=== PATIENT | female | born 1995 | race Caucasian/White ===

== ENCOUNTER 2016-09-07 17:56 | Emergency (ER) | payer BC ==
[~2016-09-07] VITALS: Ht 157.5 cm; Wt 63.1 kg
[2016-09-07 17:59] VITALS: TEMP 37; Ht 157.5 cm; Wt 63.1 kg
[2016-09-07] MEDS ORDERED: BCPILLS PO (18:18)
[2016-09-07] MEDS ORDERED: ESCI1TAB10 PO (18:18)
[2016-09-07] MEDS ORDERED: PROPARACAINE HCL 0.5% OP SOLN 15 ML BTL OP STA (18:34)
--- NOTE | 2016-09-07 19:06 | EMERGENCY ROOM VISIT NOTE ---
History First contact with patient: 18:14 Chief Complaint: EYE ASSESSMENT Stated Complaint: BLURRED VISION,EYE PRESSURE,BURNING,LIGHTSENSITIVE History of Present Illness The patient is a 21 year old female who presents to the Emergency Room with complaints of burning in bilateral eyes. The patient reports that she was seen at [facility] 4 days ago due to burning in her right eye. They prescribed her an antibiotic drop which she used for 3 days. She reports that the symptoms seemed to worsen and also spread to the left eye. She called them and they prescribed her a second eyedrop. She reports that she uses eyedrop for 2 days but her symptoms have not improved. She reports blurred visions at times and a feeling of pressure in her eyes. She does not wear contacts or glasses. She states the eyes are watering and she describes a burning pain. She reports her overall vision is not decreased. She denies any cough, earaches or sore throat. Review of Systems A complete 10-point Review of Systems was discussed with the patient, with pertinent positives and negatives listed in the History of Present Illness. All remaining Review of Systems questions can be considered negative unless otherwise specified. Social History Smoking Status: Never Smoker Current/Historical Medications Scheduled Control Pills ( Control Pills), 1 TAB PO DAILY Escitalopram Oxalate (Lexapro), 20 MG PO DAILY Allergies Coded Allergies: No Known Allergies (Unverified , 09/07/16) Physical Exam Vital Signs Date Time Temp Pulse Resp B/P Pulse Ox O2 Delivery O2 Flow Rate FiO2 09/07/16 19:09 62 20 104/68 97 09/07/16 17:59 37.0 76 18 141/76 98 Room Air Right Eye Acuity: 20/30 Left Eye Acuity: 20/25 Physical Exam VITALS: Vitals are noted on the nurse's note and reviewed by myself. Vital signs stable. GENERAL: This is a 21-year-old female, in no acute distress, nondiaphoretic, well-developed well-nourished. SKIN: The skin was without rashes. HEAD: Normocephalic atraumatic. EARS: External auditory canals clear, tympanic membranes pearly bautista without erythema or effusion bilaterally. EYES: Visual acuity as noted above. Pupils equal round and reactive to light and accommodation. Moderate conjunctival injection bilaterally. Extraocular movements intact. No hyphema noted. No foreign bodies on slit-lamp examination. There is no fluorescein uptake under UV light examination. NOSE: Patent, turbinates without inflammation or discharge. No sinus tenderness. MOUTH: Mucous membranes moist. Tonsils are not enlarged. Pharynx without erythema or exudate. NEURO: Patient was alert and oriented to person place and time. Medical Decision & Procedures Medications Administered Medications (Trade) Dose Ordered Sig/Radha Route Start Time Stop Time Status Last Admin Dose Admin Proparacaine HCl (Alcaine 0.5% Oph Soln) 2 drops NOW STAT OP 09/07/16 18:34 09/07/16 18:35 DC 09/07/16 18:45 2 DROPS Medical Decision Differential diagnosis includes bacterial conjunctivitis, viral conjunctivitis, allergic conjunctivitis, among others. The patient was evaluated as above. Alcaine drops were placed in both eyes. A slit-lamp examination was performed as above. There was no fluorescein uptake seen on examination. I feel that the patient may have an allergic conjunctivitis which has been worsened by the drops she has been using. The patient was instructed to stop using these drops, as her continued symptoms may be due to a reaction to these drops. I did provide her with the information for an hospital medical biller and recommended that she call them Saturday to schedule a follow-up appointment. If her symptoms worsen, the patient was encouraged to return here sooner. The patient verbalized understanding of my assessment and treatment plan and was discharged home in good condition. Impression Primary Impression: Bilateral conjunctivitis Departure Information Dispostion Home / Self-Care Condition GOOD Referrals [facility] (PCP) Alejandro Casey D.O. Patient Instructions My [facility] Additional Instructions Stop using the antibiotic eyedrops. You should begin using an antihistamine eyedrop in both eyes. You may also use a lubricating eyedrop for relief. If you still have continued symptoms Saturday, contact an hospital medical biller to schedule a follow-up visit. If your symptoms worsen, you should return here for follow-up sooner. Problem Qualifiers Primary Impression: Bilateral conjunctivitis Conjunctivitis type: acute Acute conjunctivitis type: unspecified Qualified Codes: H10.33 - Unspecified acute conjunctivitis, bilateral
[2016-09-07 19:09] VITALS: BP 104/68; PULSE 62; O2SAT 97
== END 2016-09-07 19:09 | disposition home or self-care (01) ==
LOC: C.EDB 18:01 → C.EDD 19:09
DX: H10.33 Unspecified acute conjunctivitis, bilateral (principal)

== ENCOUNTER 2018-02-05 04:09 | Observation (INO) | payer BC ==
[2018-02-05] VITALS (8 sets, daily range): BP systolic 109–122; BP diastolic 71–77; PULSE 69–89; TEMP 36.8–37; O2SAT 94–98; Ht 157.5 cm; Wt 55.1 kg
[~2018-02-05] VITALS: Ht 157.5 cm; Wt 55.1 kg
[~2018-02-05 04:09] MED LIST: BCPILLS PO; CEFD300C2 PO; ESCI1TAB10 PO
[2018-02-05] MEDS ORDERED: METHYLPREDNISOLONE 125 MG VIAL IV STA (04:21)
[2018-02-05] MEDS ORDERED: ALBUT/IPRATROP 3MG/0.5MG NEB 3 ML VIAL INH ONE ×2 (04:30→07:15)
[2018-02-05 04:46] LABS: BASO % 0.4 %; BASO ABS # 0.07 K/uL (0-0.2); EOS % 3.7 %; EOS ABS # 0.74 K/uL (0-0.5); HEMATOCRIT 42.9 % (37-47); HEMOGLOBIN 14.6 g/dL (12.0-16.0); IG# 0.12 K/uL (0.00-0.02); LYMPH ABS # 4.54 K/uL (1.2-3.4); MEAN CELL VOLUME 93.9 fL (80-100); MEAN CORPUSCULAR HEMOGLOBIN 31.9 pg (25-34); MEAN PLATELET VOLUME 10.2 fL (7.4-10.4); MONO % 6.6 %; MONO ABS # 1.31 K/uL (0.11-0.59); NEUT % 65.7 %; PLATELET COUNT 369 K/uL (130-400); RED CELL DISTRIBUTION WIDTH CV 11.9 % (11.5-14.5); RED CELL DISTRIBUTION WIDTH SD 39.8 fL (36.4-46.3); WHITE BLOOD COUNT 19.78 K/uL (4.8-10.8)
[2018-02-05 05:11] LABS: ALBUMIN 3.9 gm/dl (3.4-5.0); CALCIUM 8.3 mg/dl (8.5-10.1); CREATININE 1.07 mg/dl (0.60-1.20); POTASSIUM 3.6 mmol/L (3.5-5.1); TOTAL PROTEIN 7.4 gm/dl (6.4-8.2)
[2018-02-05] MEDS ORDERED: OPTIRAY 320 IV PRN (05:15)
[2018-02-05] MEDS ORDERED: VALA500T60 PO (05:23)
[2018-02-05] MEDS ORDERED: FLUO10CA48 PO (05:23)
--- NOTE | 2018-02-05 06:31 | DIAGNOSTIC IMAGING REPORT ---
CHEST 2 VIEWS ROUTINE CLINICAL HISTORY: Cough/bronchitis. COMPARISON STUDY: No previous studies for comparison. FINDINGS: Lung volumes are normal. There is no pneumothorax or pleural effusion. No consolidation is noted. Cardiac size is normal. Mediastinal contours are normal. Pulmonary vascularity is normal. IMPRESSION: No acute cardiopulmonary findings. Electronically signed by: Teo Oneil M.D. 02/05/2018 6:30 AM Dictated Date/Time: 02/05/2018 6:29 AM
--- NOTE | 2018-02-05 06:53 | DIAGNOSTIC IMAGING REPORT ---
CT ANGIOGRAM OF THE CHEST CLINICAL HISTORY: Cough, elevated d-dimer, elevated white count. Possible pulmonary was. COMPARISON STUDY: Chest x-ray dated 02/05/2018 TECHNIQUE: Following the IV administration of 94 mL of Optiray-320, CT angiogram of the thorax was performed from the thoracic inlet to the lung bases utilizing the pulmonary embolus protocol. Images are reviewed in the axial, sagittal, and coronal planes. IV contrast was administered without complication. MIP imaging was performed. A dose lowering technique was utilized adhering to the principles of ALARA. CT DOSE: 208.96 mGy.cm FINDINGS: Hilar lymph nodes are the upper limits of normal in size. There is no pathologic mediastinal or axillary lymphadenopathy. There was no evidence of thoracic aortic dilatation. There were no pulmonary artery filling defects to indicate acute pulmonary embolism. No pleural effusions are visualized. There is no focal pulmonary consolidation. There is diffuse central bronchial wall thickening. IMPRESSION: 1. No evidence of acute pulmonary embolism 2. No evidence of focal pulmonary consolidation 3. Bronchial wall thickening consistent with a bronchitis/bronchiolitis. Electronically signed by: Micah Hill M.D. 02/05/2018 6:52 AM Dictated Date/Time: 02/05/2018 6:32 AM
--- NOTE | 2018-02-05 07:39 | EMERGENCY ROOM VISIT NOTE ---
History First contact with patient: 07:19 Chief Complaint: RESPIRATORY PROBLEMS Stated Complaint: TROUBLE BREATHING Nursing Triage Summary: see triage note. pt reports recent bronchitis dx. c/o increased SOB. hacking cough noted. pt reports using inhaler with no relief. History of Present Illness The patient is a 22 year old female who presents to the Emergency Room via private vehicle with complaints of "trouble breathing". The patient case was signed out to me at 0700 hrs. by Sagar Jimenez PA-C at shift change. To summarize , the patient has had essentially 1 week worth of coughing, wheezing and has been on Omnicef, steroids and albuterol inhaler with minimal relief. She presents to us today with acute worsening of her symptoms. Please refer to his note for full H&P, ROS, and physical examination. At the time of signout patient was undergoing a 1 hour DuoNeb to improve her wheezing. At that time all laboratory studies were returned as well as imaging. Review of Systems A complete 6-point Review of Systems was discussed with the patient, with pertinent positives and negatives listed in the History of Present Illness. All remaining Review of Systems questions can be considered negative unless otherwise specified. Past Medical/Surgical History Medical Problems: (1) Asthma exacerbation Social History Smoking Status: Never Smoker Current/Historical Medications Scheduled Control Pills ( Control Pills), 1 TAB PO DAILY Cefdinir (Omnicef), 300 MG PO Q12H Fluoxetine (Prozac), 10 MG PO DAILY Valacyclovir (Valtrex), 500 MG PO DAILY Physical Exam Vital Signs Date Time Temp Pulse Resp B/P (MAP) Pulse Ox O2 Delivery O2 Flow Rate FiO2 02/05/18 08:21 104 18 120/74 99 Nebulizer 9.0 02/05/18 07:31 89 16 98 Room Air 02/05/18 06:47 100 18 123/85 96 Room Air 02/05/18 05:59 103 18 123/85 98 Room Air 02/05/18 05:10 104 22 115/73 95 Room Air 02/05/18 04:19 96 Room Air 02/05/18 04:12 37.1 112 24 111/77 95 Room Air Physical Exam The patient is a 22 year old female who presents to the Emergency Room via private vehicle with complaints of "trouble breathing". The patient case was signed out to me at 0700 hrs. by Sagar Jimenez PA-C at shift change. To summarize , the patient has had essentially 1 week worth of coughing, wheezing and has been on Omnicef, steroids and albuterol inhaler with minimal relief. She presents to us today with acute worsening of her symptoms. Please refer to his note for full H&P, ROS, and physical examination. At the time of signout patient was undergoing a 1 hour DuoNeb to improve her wheezing. At that time all laboratory studies were returned as well as imaging. Upon my examination, there is diffuse wheezing, right greater than left in the lung mitchell. Medical Decision & Procedures Laboratory Results 02/05/18 04:30 Red Blood Count 4.57, Mean Corpuscular Volume 93.9, Mean Corpuscular Hemoglobin 31.9, Mean Corpuscular Hemoglobin Concent 34.0, Mean Platelet Volume 10.2, Neutrophils (%) (Auto) 65.7, Lymphocytes (%) (Auto) 23.0, Monocytes (%) (Auto) 6.6, Eosinophils (%) (Auto) 3.7, Basophils (%) (Auto) 0.4, Neutrophils # (Auto) 13.00, Lymphocytes # (Auto) 4.54, Monocytes # (Auto) 1.31, Eosinophils # (Auto) 0.74, Basophils # (Auto) 0.07 02/05/18 04:30 Test 02/05/18 04:30 02/05/18 04:40 White Blood Count 19.78 K/uL (4.8-10.8) Red Blood Count 4.57 M/uL (4.2-5.4) Hemoglobin 14.6 g/dL (12.0-16.0) Hematocrit 42.9 % (37-47) Mean Corpuscular Volume 93.9 fL (80-100) Mean Corpuscular Hemoglobin 31.9 pg (25-34) Mean Corpuscular Hemoglobin Concent 34.0 g/dl (32-36) Platelet Count 369 K/uL (130-400) Mean Platelet Volume 10.2 fL (7.4-10.4) Neutrophils (%) (Auto) 65.7 % Lymphocytes (%) (Auto) 23.0 % Monocytes (%) (Auto) 6.6 % Eosinophils (%) (Auto) 3.7 % Basophils (%) (Auto) 0.4 % Neutrophils # (Auto) 13.00 K/uL (1.4-6.5) Lymphocytes # (Auto) 4.54 K/uL (1.2-3.4) Monocytes # (Auto) 1.31 K/uL (0.11-0.59) Eosinophils # (Auto) 0.74 K/uL (0-0.5) Basophils # (Auto) 0.07 K/uL (0-0.2) RDW Standard Deviation 39.8 fL (36.4-46.3) RDW Coefficient of Variation 11.9 % (11.5-14.5) Immature Granulocyte % (Auto) 0.6 % Immature Granulocyte # (Auto) 0.12 K/uL (0.00-0.02) Anion Gap 11.0 mmol/L (3-11) Est Creatinine Clear Calc Drug Dose 65.8 ml/min Estimated GFR () 85.9 Estimated GFR (Non- 74.2 BUN/Creatinine Ratio 13.9 (10-20) Calcium Level 8.3 mg/dl (8.5-10.1) Total Bilirubin 0.3 mg/dl (0.2-1) Aspartate Amino Transf (AST/SGOT) 12 U/L (15-37) Alanine Aminotransferase (ALT/SGPT) 23 U/L (12-78) Alkaline Phosphatase 53 U/L (45-117) Total Protein 7.4 gm/dl (6.4-8.2) Albumin 3.9 gm/dl (3.4-5.0) Globulin 3.5 gm/dl (2.5-4.0) Albumin/Globulin Ratio 1.1 (0.9-2) Bedside D-Dimer > 450 ng/mlFEU (0-450) Medications Administered Medications (Trade) Dose Ordered Sig/Radha Route Start Time Stop Time Status Last Admin Dose Admin Methylprednisolone Sodium Succinate (Solu-Medrol IV) 125 mg NOW STAT IV 02/05/18 04:21 02/05/18 04:23 DC 02/05/18 04:43 125 MG Albuterol/ Ipratropium (Duoneb) 3 ml NOW ONCE INH 02/05/18 04:30 02/05/18 04:31 DC 02/05/18 04:43 3 ML Albuterol/ Ipratropium (Duoneb) 12 ml NOW ONCE INH 02/05/18 07:15 02/05/18 07:16 DC 02/05/18 07:31 12 ML Medical Decision Patient was seen and evaluated as above initially by Sagar Jimenez, and signed out to me to 700 hours. Review was performed of nursing notes and vital signs. I did review all of her studies up to that point. She was trying an hour-long nebulizer. Prior to this she had diffuse wheezing still. This is despite the Omnicef she has been on for a week, steroids as well as an albuterol inhaler. No history of asthma. The CT of the chest does not reveal pulmonary emboli. I suspect this is likely some type of bronchial irritation. After the hour-long DuoNeb she did have some improvement, but on short interval reassessment she noted the wheezing had begun to return. I believe that further evaluation and management in the inpatient setting is warranted. Please refer to for the documentation regarding her stay. In the evaluation and treatment of this patient the following differential diagnoses were entertained: Bronchitis, PE, pneumonia, among others. Impression Primary Impression: Bronchitis Departure Information Dispostion Admitted as an inpatient Condition [facility] (PCP) Patient Instructions My [facility]
[2018-02-05] MEDS ORDERED: MAGNESIUM SULFATE 1GM / D5W 100 ML IV STA (08:51)
[2018-02-05] MEDS ORDERED: ONDANSETRON INJ 2 MG/ML 2 ML VIAL IV PRN (09:00)
[2018-02-05] MEDS ORDERED: ACETAMINOPHEN 325 MG TAB PO PRN (09:00)
[2018-02-05] MEDS ORDERED: MAGNESIUM HYDROXIDE SUSP 30 ML UDC PO PRN (09:00)
[2018-02-05] MEDS ORDERED: IV FLUIDS COMPLETED PRN (09:30)
[2018-02-05] MEDS ORDERED: PNEUMOCOCCAL ADMINISTRATION CHARGE ONE (10:15)
[2018-02-05] MEDS ORDERED: PNEUMOCOCCAL POLYSACCHARIDES 25 MCG/0.5 ML VIAL/SYR IM. ONE (10:15)
[2018-02-05] MEDS: FLUOXETINE HCL 10 MG CAP PO SCH (10:23)
[2018-02-05] MEDS: LEVOFLOXACIN 500 MG TAB PO SCH (10:23)
--- NOTE | 2018-02-05 11:51 | History and Physical ---
History & Physical Date & Time of Service: Feb 05, 2018 at 11:50 Chief Complaint: Asthma Exacerbation Primary Care Physician: [facility] History of Present Illness pt has had 3 week episode of coughing and shortness of breath that has been tried on abtx and oral steroids for the last 5 days, she was given an hour long nebulizer and felt somewhat better. she will be started on levaquin for bronchitis. Past Medical/Surgical History Medical Problems: (1) Asthma exacerbation (2) Bilateral conjunctivitis Social History Smoking Status: Never Smoker Smokeless Tobacco Use: No Alcohol Use: socially Housing status: lives with friends Occupational Status: [employer] student Allergies Coded Allergies: No Known Allergies (Unverified , 02/05/18) Home Medications Scheduled Control Pills ( Control Pills), 1 TAB PO DAILY Cefdinir (Omnicef), 300 MG PO Q12H Fluoxetine (Prozac), 10 MG PO DAILY Valacyclovir (Valtrex), 500 MG PO DAILY Review of Systems Constitutional: No fever, No chills Respiratory: + cough, + wheezing, + shortness of breath, No sputum, No dyspnea on exertion Cardiovascular: No chest pain, No orthopnea, No edema Abdomen: No pain, No nausea, No diarrhea Musculoskeletal: No joint pain, No muscle pain Genitourinary - Female: No dysuria, No urinary frequency Neurologic: No memory loss, No weakness Psychiatric: No depression symptoms, No anhedonism Endocrine: + fatigue, No excessive thirst Physical Exam Vital Signs Date Time Temp Pulse Resp B/P (MAP) Pulse Ox O2 Delivery O2 Flow Rate FiO2 02/05/18 09:30 37.0 77 18 109/77 (88) 95 Room Air 02/05/18 09:05 98 Room Air 02/05/18 08:21 104 18 120/74 99 Nebulizer 9.0 02/05/18 07:31 89 16 98 Room Air 02/05/18 06:47 100 18 123/85 96 Room Air 02/05/18 05:59 103 18 123/85 98 Room Air 02/05/18 05:10 104 22 115/73 95 Room Air 02/05/18 04:19 96 Room Air 02/05/18 04:12 37.1 112 24 111/77 95 Room Air General Appearance: + mild distress, + thin Head: normocephalic, atraumatic Eyes: normal inspection, sclerae normal Neck: supple, no JVD Respiratory/Chest: chest non-tender, + decreased breath sounds, + accessory muscle use Cardiovascular: regular rate, rhythm, no murmur Abdomen/GI: normal bowel sounds, non tender, soft Back: no muscle spasm, normal range of motion Extremities/Musculoskelatal: no pedal edema, normal range of motion Neurologic/Psych: alert, oriented x 3 Skin: normal color, warm/dry, no rash Diagnostics Laboratory Results Results Past 24 Hours Test 02/05/18 04:30 02/05/18 04:40 Range/Units White Blood Count 19.78 4.8-10.8 K/uL Red Blood Count 4.57 4.2-5.4 M/uL Hemoglobin 14.6 12.0-16.0 g/dL Hematocrit 42.9 37-47 % Mean Corpuscular Volume 93.9 80-100 fL Mean Corpuscular Hemoglobin 31.9 25-34 pg Mean Corpuscular Hemoglobin Concent 34.0 32-36 g/dl Platelet Count 369 130-400 K/uL Mean Platelet Volume 10.2 7.4-10.4 fL Neutrophils (%) (Auto) 65.7 % Lymphocytes (%) (Auto) 23.0 % Monocytes (%) (Auto) 6.6 % Eosinophils (%) (Auto) 3.7 % Basophils (%) (Auto) 0.4 % Neutrophils # (Auto) 13.00 1.4-6.5 K/uL Lymphocytes # (Auto) 4.54 1.2-3.4 K/uL Monocytes # (Auto) 1.31 0.11-0.59 K/uL Eosinophils # (Auto) 0.74 0-0.5 K/uL Basophils # (Auto) 0.07 0-0.2 K/uL RDW Standard Deviation 39.8 36.4-46.3 fL RDW Coefficient of Variation 11.9 11.5-14.5 % Immature Granulocyte % (Auto) 0.6 % Immature Granulocyte # (Auto) 0.12 0.00-0.02 K/uL Sodium Level 140 136-145 mmol/L Potassium Level 3.6 3.5-5.1 mmol/L Chloride Level 105 98-107 mmol/L Carbon Dioxide Level 24 21-32 mmol/L Anion Gap 11.0 3-11 mmol/L Blood Urea Nitrogen 15 7-18 mg/dl Creatinine 1.07 0.60-1.20 mg/dl Est Creatinine Clear Calc Drug Dose 65.8 ml/min Estimated GFR () 85.9 Estimated GFR (Non- 74.2 BUN/Creatinine Ratio 13.9 10-20 Random Glucose 90 70-99 mg/dl Calcium Level 8.3 8.5-10.1 mg/dl Total Bilirubin 0.3 0.2-1 mg/dl Aspartate Amino Transf (AST/SGOT) 12 15-37 U/L Alanine Aminotransferase (ALT/SGPT) 23 12-78 U/L Alkaline Phosphatase 53 45-117 U/L Total Protein 7.4 6.4-8.2 gm/dl Albumin 3.9 3.4-5.0 gm/dl Globulin 3.5 2.5-4.0 gm/dl Albumin/Globulin Ratio 1.1 0.9-2 Bedside D-Dimer > 450 0-450 ng/mlFEU CXR normal Impression Assessment and Plan 22 F with Asthmatic bronchitis, was given iv solumedrol in the ER, and will be continued on oral prednisone, antibiotics of levaquin to cover bronchitis, continued valtrex for hsv prevention continued nebulizers with transition to mdi Advanced Directives Existing Living Will: No Existing Power of Business Comput[employer] Teacher: No Resuscitation Status VTE Prophylaxis Will order VTE Prophylaxis: Yes
[2018-02-05] MEDS: LEVALBUTEROL 1.25MG/3ML NEB INH SCH ×3 (15:35→23:09)
[2018-02-05] MEDS ORDERED: [UNRECOGNIZED DRUG - OTHER] SCH (16:00)
[2018-02-05] MEDS: FORMOTEROL FUMA NEBULIZER SOLN 20 MCG/2 ML VIAL INH SCH (19:08)
--- NOTE | 2018-02-06 00:49 | EMERGENCY ROOM VISIT NOTE ---
History First contact with patient: 04:15 Chief Complaint: RESPIRATORY PROBLEMS Stated Complaint: ASTHMA EXACERBATION Nursing Triage Summary: see triage note. pt reports recent bronchitis dx. c/o increased SOB. hacking cough noted. pt reports using inhaler with no relief. History of Present Illness The patient is a 22 year old female who presents to the Emergency Room with complaints of shortness of breath and difficulty breathing. The patient states that she has had these symptoms for the past 6 or 7 days. She was initially seen and evaluated at her primary care physician's office 6 days ago back home. She was given Omnicef, prednisone, and an albuterol inhaler. The patient returned to [employer] to begin the semester over the weekend, and is still on the Omnicef and inhaler. She completed the steroids yesterday. Despite taking these medications the patient has worsening of her symptoms. She has difficulty speaking in complete sentences because of her shortness of breath. She rates her current discomfort in 8/10. She has never had symptoms like this in the past. Review of Systems More than 10 systems were reviewed and otherwise negative with the exception of history of present illness. Past Medical/Surgical History Medical Problems: (1) Asthma exacerbation Family History No pertinent family history Social History Smoking Status: Never Smoker Smokeless Tobacco Use: No Occupation Status: [employer] student Current/Historical Medications Scheduled Control Pills ( Control Pills), 1 TAB PO DAILY Cefdinir (Omnicef), 300 MG PO Q12H Fluoxetine (Prozac), 10 MG PO DAILY Valacyclovir (Valtrex), 500 MG PO DAILY Physical Exam Vital Signs Date Time Temp Pulse Resp B/P (MAP) Pulse Ox O2 Delivery O2 Flow Rate FiO2 02/05/18 08:21 104 18 120/74 99 Nebulizer 9.0 02/05/18 07:31 89 16 98 Room Air 02/05/18 06:47 100 18 123/85 96 Room Air 02/05/18 05:59 103 18 123/85 98 Room Air 02/05/18 05:10 104 22 115/73 95 Room Air 02/05/18 04:19 96 Room Air 02/05/18 04:12 37.1 112 24 111/77 95 Room Air Physical Exam VITALS: Vitals are noted on the nurse's note and reviewed by myself. Vital signs stable. GENERAL: White female who is diffusely wheezing upon my arrival into the room. She appears with difficulty breathing. She speaks in 3-4 word sentences. HEAD: Normocephalic atraumatic. MOUTH: Mucous membranes moist. Tonsils are not enlarged. Pharynx without erythema, blood, or exudate. Uvula midline. Airway patent. NECK: Supple without nuchal rigidity. No lymphadenopathy. No thyromegaly. Cervical spine is nontender. HEART: Regular rate and rhythm without murmurs gallops or rubs. LUNGS: Diffuse wheezing and rhonchi throughout MUSCULOSKELETAL: No muscle atrophy, erythema, or edema noted. NEURO: Patient was alert and oriented to person place and time. Medical Decision & Procedures ER Provider Diagnostic Interpretation: CT ANGIOGRAM OF THE CHEST CLINICAL HISTORY: Cough, elevated d-dimer, elevated white count. Possible pulmonary was. COMPARISON STUDY: Chest x-ray dated 02/05/2018 TECHNIQUE: Following the IV administration of 94 mL of Optiray-320, CT angiogram of the thorax was performed from the thoracic inlet to the lung bases utilizing the pulmonary embolus protocol. Images are reviewed in the axial, sagittal, and coronal planes. IV contrast was administered without complication. MIP imaging was performed. A dose lowering technique was utilized adhering to the principles of ALARA. CT DOSE: 208.96 mGy.cm FINDINGS: Hilar lymph nodes are the upper limits of normal in size. There is no pathologic mediastinal or axillary lymphadenopathy. There was no evidence of thoracic aortic dilatation. There were no pulmonary artery filling defects to indicate acute pulmonary embolism. No pleural effusions are visualized. There is no focal pulmonary consolidation. There is diffuse central bronchial wall thickening. IMPRESSION: 1. No evidence of acute pulmonary embolism 2. No evidence of focal pulmonary consolidation 3. Bronchial wall thickening consistent with a bronchitis/bronchiolitis. CHEST 2 VIEWS ROUTINE CLINICAL HISTORY: Cough/bronchitis. COMPARISON STUDY: No previous studies for comparison. FINDINGS: Lung volumes are normal. There is no pneumothorax or pleural effusion. No consolidation is noted. Cardiac size is normal. Mediastinal contours are normal. Pulmonary vascularity is normal. IMPRESSION: No acute cardiopulmonary findings. Laboratory Results 02/05/18 04:30 Red Blood Count 4.57, Mean Corpuscular Volume 93.9, Mean Corpuscular Hemoglobin 31.9, Mean Corpuscular Hemoglobin Concent 34.0, Mean Platelet Volume 10.2, Neutrophils (%) (Auto) 65.7, Lymphocytes (%) (Auto) 23.0, Monocytes (%) (Auto) 6.6, Eosinophils (%) (Auto) 3.7, Basophils (%) (Auto) 0.4, Neutrophils # (Auto) 13.00, Lymphocytes # (Auto) 4.54, Monocytes # (Auto) 1.31, Eosinophils # (Auto) 0.74, Basophils # (Auto) 0.07 02/05/18 04:30 Test 02/05/18 04:30 02/05/18 04:40 White Blood Count 19.78 K/uL (4.8-10.8) Red Blood Count 4.57 M/uL (4.2-5.4) Hemoglobin 14.6 g/dL (12.0-16.0) Hematocrit 42.9 % (37-47) Mean Corpuscular Volume 93.9 fL (80-100) Mean Corpuscular Hemoglobin 31.9 pg (25-34) Mean Corpuscular Hemoglobin Concent 34.0 g/dl (32-36) Platelet Count 369 K/uL (130-400) Mean Platelet Volume 10.2 fL (7.4-10.4) Neutrophils (%) (Auto) 65.7 % Lymphocytes (%) (Auto) 23.0 % Monocytes (%) (Auto) 6.6 % Eosinophils (%) (Auto) 3.7 % Basophils (%) (Auto) 0.4 % Neutrophils # (Auto) 13.00 K/uL (1.4-6.5) Lymphocytes # (Auto) 4.54 K/uL (1.2-3.4) Monocytes # (Auto) 1.31 K/uL (0.11-0.59) Eosinophils # (Auto) 0.74 K/uL (0-0.5) Basophils # (Auto) 0.07 K/uL (0-0.2) RDW Standard Deviation 39.8 fL (36.4-46.3) RDW Coefficient of Variation 11.9 % (11.5-14.5) Immature Granulocyte % (Auto) 0.6 % Immature Granulocyte # (Auto) 0.12 K/uL (0.00-0.02) Anion Gap 11.0 mmol/L (3-11) Est Creatinine Clear Calc Drug Dose 65.8 ml/min Estimated GFR () 85.9 Estimated GFR (Non- 74.2 BUN/Creatinine Ratio 13.9 (10-20) Calcium Level 8.3 mg/dl (8.5-10.1) Total Bilirubin 0.3 mg/dl (0.2-1) Aspartate Amino Transf (AST/SGOT) 12 U/L (15-37) Alanine Aminotransferase (ALT/SGPT) 23 U/L (12-78) Alkaline Phosphatase 53 U/L (45-117) Total Protein 7.4 gm/dl (6.4-8.2) Albumin 3.9 gm/dl (3.4-5.0) Globulin 3.5 gm/dl (2.5-4.0) Albumin/Globulin Ratio 1.1 (0.9-2) Bedside D-Dimer > 450 ng/mlFEU (0-450) Medications Administered Medications (Trade) Dose Ordered Sig/Radha Route Start Time Stop Time Status Last Admin Dose Admin Methylprednisolone Sodium Succinate (Solu-Medrol IV) 125 mg NOW STAT IV 02/05/18 04:21 02/05/18 04:23 DC 02/05/18 04:43 125 MG Albuterol/ Ipratropium (Duoneb) 3 ml NOW ONCE INH 02/05/18 04:30 02/05/18 04:31 DC 02/05/18 04:43 3 ML Albuterol/ Ipratropium (Duoneb) 12 ml NOW ONCE INH 02/05/18 07:15 02/05/18 07:16 DC 02/05/18 07:31 12 ML Magnesium Sulfate 100 ml @ 100 mls/hr NOW STAT IV 02/05/18 08:51 02/05/18 09:50 DC 02/05/18 10:23 100 MLS/HR ED Course Physical exam and history were performed. Nursing notes, EMR, and Medication List were personally reviewed. Patient appears to have a reported bronchitis history that is being treated with antibiotics, steroids, and albuterol. The patient appears with significant discomfort in breathing. IV access was established and labs were drawn. The patient was given IV Solu-Medrol as well as a DuoNeb treatment. Chest x-ray was performed and reviewed by myself and radiology as above. The patient's blood work was reviewed and she does have a markedly elevated white blood cell count of 19,000. Some of this may be from her steroids, however this does seem quite high even in the setting of corticosteroid use. She does not have a significant anemia or gross electrolyte imbalance. D-dimer was elevated, and as there is a recent travel history and returning to [place] from home in [place] I did elect to perform a CT scan of her chest. The CT scan is as above and does not show evidence of PE. There are is suggestion of a bronchitis/bronchiolitis causing her symptoms. On reevaluation the patient did have some improvement of her breathing after the Solu-Medrol and DuoNeb, however it only estimated at 10-15% improvement. She was able to speak easier, and did not appear as tachycardic as initially presented. I discussed options of care with the patient, and will attempt a 1 hour DuoNeb, as this seemed to be the thing that helped the most tonight. The patient remained in stable condition until the time of shift change. At this point the case was discussed with Juan Diego Mosqueda PAC. We are awaiting the completion of the 1 hour DuoNeb before reassessing the patient. If she does well she may be a good candidate for discharge, however my concern is that she may have persistent symptoms and need further inpatient care. Please see Mr. Mosqueda's dictation for further patient course, plan, and disposition. The chart was completed utilizing [employer] Speech Voice Recognition Software. Grammatical errors, random word insertions, pronoun errors, and incomplete sentences are an occasional consequence of this system due to software limitations, ambient noise, and hardware issues. Any formal questions or concerns about the content, text, or information contained within the body of this dictation should be directly addressed to the provider for clarification. . Medical Decision Differential diagnosis: Etiologies such as infections, reactive airway disease, pneumonia, pneumothorax , COPD, CHF, cardiac ischemia, pulmonary embolism, musculoskeletal, gastrointestinal, as well as others were entertained. Impression Primary Impression: Bronchitis Departure Information Dispostion Still a Patient Condition FAIR Referrals [facility] (PCP) Forms WORK / SCHOOL INSTRUCTIONS, HOME CARE DOCUMENTATION FORM, IMPORTANT VISIT INFORMATION Patient Instructions My [facility]
[2018-02-06 03:07] VITALS: PULSE 74; O2SAT 96
[2018-02-06] MEDS: LEVALBUTEROL 1.25MG/3ML NEB INH SCH ×2 (03:07→06:56)
[2018-02-06 06:56] VITALS: PULSE 77; O2SAT 96
[2018-02-06] MEDS: FORMOTEROL FUMA NEBULIZER SOLN 20 MCG/2 ML VIAL INH SCH (06:56)
[2018-02-06 07:29] VITALS: BP 118/70; PULSE 86; TEMP 36.4; O2SAT 98
[2018-02-06 07:40] LABS: HEMATOCRIT 39.1 % (37-47); HEMOGLOBIN 13.3 g/dL (12.0-16.0); MEAN CELL VOLUME 93.8 fL (80-100); MEAN CORPUSCULAR HEMOGLOBIN 31.9 pg (25-34); MEAN PLATELET VOLUME 10.1 fL (7.4-10.4); PLATELET COUNT 297 K/uL (130-400); RED CELL DISTRIBUTION WIDTH CV 12.1 % (11.5-14.5); RED CELL DISTRIBUTION WIDTH SD 40.8 fL (36.4-46.3); WHITE BLOOD COUNT 17.27 K/uL (4.8-10.8)
[2018-02-06 08:00] VITALS: O2SAT 96
[2018-02-06] MEDS: FLUOXETINE HCL 10 MG CAP PO SCH (08:04)
[2018-02-06 08:19] LABS: CALCIUM 8.6 mg/dl (8.5-10.1); CREATININE 0.74 mg/dl (0.60-1.20); POTASSIUM 2.8 mmol/L (3.5-5.1)
[2018-02-06] MEDS ORDERED: POTASSIUM CHLORIDE 20 MEQ TABCR PO STA (09:07)
[2018-02-06] MEDS ORDERED: PRVHFAIN INH (09:10)
[2018-02-06] MEDS ORDERED: LVQ500 PO (09:10)
[2018-02-06] MEDS ORDERED: PRED10TA PO (09:10)
--- NOTE | 2018-02-06 09:10 | Discharge Instructions ---
Discharge Instructions Date of Service Feb 06, 2018. Admission Reason for Admission: Asthma Exacerbation Discharge Discharge Diagnosis / Problem: asthmatic bronchitis Discharge Goals Goal(s): Diagnostic testing, Therapeutic intervention Activity Recommendations Activity Limitations: as noted below Lifting Limitations: gradually increase as tolerated . Current Hospital Diet Patient's current hospital diet: Regular Diet Discharge Diet Recommended Diet: Regular Diet Pending Studies Studies pending at discharge: no Medical Emergencies . Who to Call and When: Medical Emergencies: If at any time you feel your situation is an emergency, please call 911 immediately. . Non-Emergent Contact Non-Emergency issues call your: Primary Care Provider Call Non-Emergent contact if: temperature is above 101, your pain is not controlled . . "Provider Documentation" section prepared by Andrea Spicer. .
[2018-02-06 09:18] VITALS: BP 118/70; PULSE 86; TEMP 36.4; O2SAT 96
[2018-02-06] MEDS: LEVOFLOXACIN 500 MG TAB PO SCH (09:46)
--- NOTE | 2018-02-06 17:29 | Discharge Summary ---
Discharge Summary Date of Service Feb 06, 2018. Discharge Summary Admission Date: Feb 05, 2018 at 08:51 Discharge Date: Feb 06, 2018 Discharge Disposition: Home Principal Diagnosis: bronchial asthma Medication Reconciliation New Medications: Albuterol (Ventolin Hfa) 60 Puffs/5400 Mcg Aers 2 PUFFS INH QID, #1 INHA Prednisone Tab (Prednisone) 10 Mg Tab 10 MG PO UD, #27 TAB 3 pills daily x 3 days then 2 pills daily x 3 DAYS THEN 1 pill a day Levofloxacin (Levofloxacin) 500 Mg Tab 500 MG PO DAILY@11, #5 TAB Continued Medications: Control Pills ( Control Pills) Tab 1 TAB PO DAILY Fluoxetine (Prozac) 10 Mg Cap 10 MG PO DAILY, CAP Valacyclovir (Valtrex) 500 Mg Tab 500 MG PO DAILY, TAB Discontinued Medications: Cefdinir (Omnicef) 300 Mg Cap 300 MG PO Q12H for 10 Days Discharge Exam Review of Systems: Constitutional: No fever, No chills, No weakness Respiratory: No cough, No shortness of breath, No dyspnea on exertion Cardiovascular: No chest pain, No edema Abdomen: No pain, No nausea, No diarrhea Psychiatric: No depression symptoms, No anxiety Physical Exam: General Appearance: WD/WN, + mild distress Eyes: normal inspection, sclerae normal Neck: supple, no JVD Respiratory/Chest: chest non-tender, lungs clear, normal breath sounds Cardiovascular: regular rate, rhythm, no murmur Abdomen / GI: normal bowel sounds, non tender, soft Extremities: no pedal edema, normal range of motion Neurologic/Psychiatric: alert, oriented x 3 Hospital Course 22 F with Asthmatic bronchitis, was given iv solumedrol in the ER, and will be continued on oral prednisone, antibiotics of levaquin to cover bronchitis, at home with follow up at [facility], continued valtrex for hsv prevention will have home inhaler of albuterol Total Time Spent: Greater than 30 minutes This includes examination of the patient, discharge planning, medication reconciliation, and communication with other providers. Discharge Instructions Please refer to the electronic Patient Visit Report (Discharge Instructions) for additional information.
== END 2018-02-06 10:55 | disposition home or self-care (01) ==
LOC: C.EDB 04:10 → C.MS2W 08:51 → ENRESERV 09:16
PROVIDERS: ADMIT Internal Medicine; ATTEND Internal Medicine
DX: J45.901 Unspecified asthma with (acute) exacerbation (principal); Z79.3 Long term (current) use of hormonal contraceptives